=== PATIENT | female | born 1980 ===

== ENCOUNTER 2016-10-13 15:25 | Inpatient (IN) | payer MEDICAID ==
[2016-10-13 16:30] LABS: ROM Internal QC QC Line Present
[2016-10-13] MEDS ORDERED: Oxytocin in LR* 20 UNITS/1,000 ML BAG IVPB SCH (18:30)
[2016-10-13 18:44] LABS: Hematocrit 38 % (35-47); Hemoglobin 13.3 g/dl (12.0-16.0); Mean Corpuscular HGB Conc 35 g/dl (31-36); Mean Corpuscular Hemoglobin 32 pg (27-31); Mean Corpuscular Volume 91 fL (80-97); Mean Platelet Volume 7 um3 (7.4-10.4); Red Blood Count 4.21 10^6/ul (4.0-5.4); Red Cell Distribution Width 14 % (10.5-15); White Blood Count 7.6 10^3/ul (3.5-10.8)
[2016-10-13] MEDS ORDERED: OBEPIDURAL* 250 ML ONE (21:51)
[2016-10-13] MEDS ORDERED: Sodium Citrate/Citric Acid* 15 ML UDC PO PRN (22:43)
[2016-10-13] MEDS ORDERED: Famotidine TAB* 20 MG PO PRN (22:43)
[2016-10-13] MEDS ORDERED: Phenylephrine IV* 40 MCG/ML 10 ML SYRINGE IV PUSH PRN ×2 (22:43)
[2016-10-13] MEDS ORDERED: OBEPIDURAL* 250 ML EPIDURAL SCH (23:00)
[2016-10-14] MEDS ORDERED: Acetaminophen TAB* 325 MG PO PRN (02:01)
[2016-10-14] MEDS ORDERED: Dibucaine 1% 28.35 GM TUBE PR PRN (02:01)
[2016-10-14] MEDS ORDERED: Glycerin ADULT SUPP PR PRN (02:01)
[2016-10-14] MEDS ORDERED: Oxytocin in LR* 20 UNITS/1,000 ML BAG IVPB SCH (03:00)
[2016-10-14] MEDS ORDERED: Simethicone CHEW TAB* 80 MG PO SCH (08:30)
[2016-10-14] MEDS: Prenatal Vitamin TAB PO SCH (08:36)
[2016-10-14] MEDS: Docusate CAP* 100 MG PO SCH ×3 (08:36→20:03)
[2016-10-14] MEDS: Ibuprofen TAB* 600 MG PO PRN ×3 (08:37→20:41)
[2016-10-14] MEDS: DOCOSAHEXAENOIC ACID PO SCH (15:06)
[2016-10-14] MEDS ORDERED: Phenylephrine IV* 40 MCG/ML 10 ML SYRINGE ONE (18:44)
[2016-10-15] MEDS: Ibuprofen TAB* 600 MG PO PRN ×3 (04:41→21:18)
[2016-10-15] MEDS: Prenatal Vitamin TAB PO SCH (08:06)
[2016-10-15] MEDS: Docusate CAP* 100 MG PO SCH ×3 (08:06→21:18)
[2016-10-15] MEDS: Witch Hazel PAD* JAR TOPICAL PRN ×2 (08:06→21:18)
[2016-10-15 08:53] LABS: Hematocrit 35 % (35-47); Hemoglobin 11.8 g/dl (12.0-16.0); Mean Corpuscular HGB Conc 34 g/dl (31-36); Mean Corpuscular Hemoglobin 31 pg (27-31); Mean Corpuscular Volume 92 fL (80-97); Mean Platelet Volume 8 um3 (7.4-10.4); Red Blood Count 3.77 10^6/ul (4.0-5.4); Red Cell Distribution Width 14 % (10.5-15); White Blood Count 14.7 10^3/ul (3.5-10.8)
[2016-10-15] MEDS ORDERED: Ferrous Gluconate TAB* 324 MG TAB PO SCH (09:00)
[2016-10-15] MEDS: DOCOSAHEXAENOIC ACID PO SCH (13:13)
[2016-10-16] MEDS: Ibuprofen TAB* 600 MG PO PRN ×2 (05:57→12:02)
[2016-10-16] MEDS: Prenatal Vitamin TAB PO SCH (08:02)
[2016-10-16] MEDS: Docusate CAP* 100 MG PO SCH ×2 (08:02→13:57)
[2016-10-16 08:17] VITALS: BP 104/65
[2016-10-16] MEDS: DOCOSAHEXAENOIC ACID PO SCH (09:05)
[2016-10-16] MEDS: Witch Hazel PAD* JAR TOPICAL PRN (12:01)
--- NOTE | 2016-10-16 12:46 | PTEDU ---
Patient Name: CONNOR BARCLAY CONNOR BARCLAY selected video: BBOB: Nurturing Your Gorgeous \T\Growing Baby by to view on 10/16/2016 at 12:45:52 PM [id number]
--- NOTE | 2016-10-16 13:19 | PTEDU ---
Patient Name: CONNOR BARCLAY DENYCONNOR selected video: BBOB: Bonding Through Massage to view on 10/16/2016 at 1:18:40 PM from [id number]
== END 2016-10-16 14:22 | disposition home or self-care (01) | DRG 560 ==
LOC: MCHOBOUT 15:25 → MCHOB 16:48
PROVIDERS: ADMIT Obstetrics & Gynecology; ATTEND Obstetrics & Gynecology
PROC: 10E0XZZ Delivery of Products of Conception, External Approach (ICD-10-PCS; principal; 2016-10-14)
PROC: 0KQM0ZZ Repair Perineum Muscle, Open Approach (ICD-10-PCS; 2016-10-14)
DX: O48.0 Post-term pregnancy (principal); O26.53 Maternal hypotension syndrome, third trimester; O70.1 Second degree perineal laceration during delivery; K21.9 Gastro-esophageal reflux disease without esophagitis; Z3A.40 40 weeks gestation of pregnancy; Z37.0 Single live birth
CPT/HCPCS: 36415; 84112; 85025; 86850; 86900; 86901; A9270-GY